=== PATIENT | female | born 1985 | race Hispanic/Latino ===

== ENCOUNTER 2016-06-21 21:25 | Emergency (ER) | payer SELFPAY ==
[2016-06-21 21:50] VITALS: BP 125/82
[2016-06-21 22:22] LABS: Basophils % (Auto) 0.8 % (0.0-1.8); Hemoglobin 12.5 gm/dl (10.1-14.3); Mean Corpuscular HGB Conc 33 % (30-34); Mean Corpuscular Hemoglobin 29 pg (28-32); Mean Corpuscular Volume 88 fl (79-97); Platelet Count 368 K/mm3 (140-440); Red Blood Count 4.34 M/mm3 (3.65-5.03); Red Cell Distribution Width 13.7 % (13.2-15.2); White Blood Count 8.6 K/mm3 (4.5-11.0)
[2016-06-21 22:37] LABS: Anion Gap 18 mmol/L; BUN/Creatinine Ratio 18.57; Blood Urea Nitrogen 13 mg/dL (7-17); Calcium 9.2 mg/dL (8.4-10.2); Carbon Dioxide 26 mmol/L (22-30); Chloride 99.9 mmol/L (98-107); Glucose 102 mg/dL (65-100); Potassium 3.8 mmol/L (3.6-5.0); Sodium 140 mmol/L (137-145)
[2016-06-22 00:22] LABS: Bacteria,Urine 3+ /HPF (Negative); Bilirubin,Urine NEG (Negative); Blood,Urine LG (Negative); Ketones,Urine NEG (Negative); Leukocyte Esterase,Urine LG (Negative); Mucus,Urine 3+ /HPF; Nitrite,Urine NEG (Negative); Urobilinogen,Urine < 2.0 mg/dL (<2.0)
[2016-06-22] MEDS ORDERED: MOTRIN PO ONE (00:57)
--- NOTE | 2016-06-22 00:58 | Emergency Department Report ---
ED Abdominal Pain HPI - General Chief Complaint: Abdominal Pain Stated Complaint: HEADACHE/BLOOD IN URINE/RT SIDE PAIN/NAUSEA Time Seen by Provider: 06/22/16 00:52 Source: patient Mode of arrival: Ambulatory Limitations: No Limitations - History of Present Illness MD Complaint: abdominal pain -: week(s) Location: R flank Radiation: RLQ Migration to: no migration Severity: moderate Consistency: constant Improves With: nothing Worsens With: movement - Related Data Previous Rx's Medication Instructions Recorded Last Taken Type Cefdinir 300 mg PO BID #20 capsule 06/22/16 Unknown Rx Allergies Allergy/AdvReac Type Severity Reaction Status Date / Time No Known Allergies Allergy Unverified 06/21/16 21:44 ED Review of Systems ROS: Stated complaint: HEADACHE/BLOOD IN URINE/RT SIDE PAIN/NAUSEA Other details as noted in HPI Comment: All other systems reviewed and negative ED Past Medical Hx - Past Medical History Previous Medical History?: No - Surgical History Past Surgical History?: Yes Hx Cholecystectomy: Yes Additional Surgical History: HERNIA REPAIR - Social History Smoking Status: Current Every Day Smoker Substance Use Type: None - Medications Home Medications: Home Medications Medication Instructions Recorded Confirmed Last Taken Type Cefdinir 300 mg PO BID #20 capsule 06/22/16 Unknown Rx ED Physical Exam - General Limitations: No Limitations General appearance: alert, in no apparent distress - Head Head exam: Present: atraumatic, normocephalic - Eye Eye exam: Present: normal appearance, PERRL, EOMI Pupils: Present: normal accommodation - ENT ENT exam: Present: normal exam, mucous membranes moist - Neck Neck exam: Present: normal inspection - Respiratory Respiratory exam: Present: normal lung sounds bilaterally. Absent: respiratory distress - Cardiovascular Cardiovascular Exam: Present: regular rate, normal rhythm. Absent: systolic murmur, diastolic murmur, rubs, gallop - GI/Abdominal GI/Abdominal exam: Present: soft, tenderness, normal bowel sounds. Absent: distended, guarding, rebound, rigid (R Flank), mass, hernia - Extremities Exam Extremities exam: Present: normal inspection - Back Exam Back exam: Present: normal inspection, CVA tenderness (R) (Right) - Neurological Exam Neurological exam: Present: alert, oriented X3 - Psychiatric Psychiatric exam: Present: normal affect, normal mood - Skin Skin exam: Present: warm, dry, intact, normal color. Absent: rash ED Course Vital Signs 06/21/16 21:44 Temperature 97.9 F Pulse Rate 108 H Respiratory 20 Rate Blood Pressure 125/82 O2 Sat by Pulse 97 Oximetry ED Medical Decision Making - Lab Data Result diagrams: 06/21/16 21:55 06/21/16 21:55 Critical care attestation.: If time is entered above; I have spent that time in minutes in the direct care of this critically ill patient, excluding procedure time. ED Disposition Clinical Impression: Abdominal pain, Pyelonephritis Disposition: DISCHARGED TO HOME OR SELFCARE Is pt being admited?: No Condition: Stable Instructions: Abdominal Pain (ED), Acute Pyelonephritis (ED) Prescriptions: Cefdinir 300 mg PO BID #20 capsule Referrals: PRIMARY CARE, [Primary Care Provider] - 3-5 Days
[2016-06-22] MEDS ORDERED: ROCEPHIN/NS 1 GM/50 ML 1 GM/50 ML BAG IV ONE (01:00)
[2016-06-22] MEDS ORDERED: NACL 0.9% 1000 ML 1,000 ML IV ONE (01:00)
== END 2016-06-22 01:50 | disposition home or self-care (01) ==
LOC: ED 21:25
DX: N12 Tubulo-interstitial nephritis, not specified as acute or chronic (principal); F17.200 Nicotine dependence, unspecified, uncomplicated
CPT/HCPCS: 36415; 80048; 81001; 81025; 85025; 96365; 99283; J0696; J7030

== ENCOUNTER 2017-04-03 02:15 | Emergency (ER) | payer SELFPAY ==
[2017-04-03 02:21] VITALS: BP 115/73
[2017-04-03] MEDS ORDERED: TYLENOL PO ONE (04:08)
[2017-04-03] MEDS ORDERED: TYLENOL ONE (04:10)
== END 2017-04-03 10:00 | disposition left against medical advice (07) ==
LOC: ED 02:15
DX: R09.89 Other specified symptoms and signs involving the circulatory and respiratory systems (principal); Z53.21 Procedure and treatment not carried out due to patient leaving prior to being seen by health care provider
CPT/HCPCS: 87116; 87400; 87430

== ENCOUNTER 2017-04-04 13:36 | Emergency (ER) | payer SELFPAY ==
[2017-04-04 13:42] VITALS: BP 120/66
[2017-04-04] MEDS ORDERED: MOTRIN PO ONE (15:02)
--- NOTE | 2017-04-04 15:06 | Emergency Department Report ---
- General Chief Complaint: Upper Respiratory Infection Stated Complaint: FLY SYMPTOMS Time Seen by Provider: 04/04/17 14:56 Source: patient Mode of arrival: Ambulatory Limitations: No Limitations - History of Present Illness MD Complaint: cough, sore throat, rhinorrhea, nasal congestion -: days(s) (2) Severity scale (0 -10): 10 Quality: sharp, aching Consistency: constant Improves With: nothing Worsens With: activity Context: sick contacts Associated Symptoms: fever, chills, rhinorrhea, nasal congestion, cough - Related Data Previous Rx's Medication Instructions Recorded Last Taken Type Cefdinir 300 mg PO BID #20 capsule 06/22/16 Unknown Rx Dexchlorpheniram/Phenylephrine 1 each PO Q6H #16 tab 04/04/17 Unknown Rx [Rymed Tablet] Doxycycline [Vibramycin] 100 mg PO Q12HR 10 Days #20 capsule 04/04/17 Unknown Rx Ibuprofen 600 mg PO Q8H PRN #15 tablet 04/04/17 Unknown Rx Ofloxacin 0.3% [Ocuflox] 10 drops OP BID #1 bottle 04/04/17 Unknown Rx Allergies Allergy/AdvReac Type Severity Reaction Status Date / Time No Known Allergies Allergy Unverified 06/21/16 21:44 ED Review of Systems ROS: Stated complaint: FLY SYMPTOMS Other details as noted in HPI Constitutional: fever, malaise ENT: ear pain, throat pain, congestion (nasal), other (rhinorrhea) Respiratory: cough Gastrointestinal: denies: abdominal pain, nausea, diarrhea Genitourinary: denies: urgency, dysuria, discharge Musculoskeletal: denies: back pain, joint swelling, arthralgia Skin: denies: rash, lesions ED Past Medical Hx - Past Medical History Previous Medical History?: No - Surgical History Hx Cholecystectomy: Yes Additional Surgical History: HERNIA REPAIR, T&A - Social History Smoking Status: Current Every Day Smoker Substance Use Type: None - Medications Home Medications: Home Medications Medication Instructions Recorded Confirmed Last Taken Type Cefdinir 300 mg PO BID #20 capsule 06/22/16 Unknown Rx Dexchlorpheniram/Phenylephrine 1 each PO Q6H #16 tab 04/04/17 Unknown Rx [Rymed Tablet] Doxycycline [Vibramycin] 100 mg PO Q12HR 10 Days #20 capsule 04/04/17 Unknown Rx Ibuprofen 600 mg PO Q8H PRN #15 tablet 04/04/17 Unknown Rx Ofloxacin 0.3% [Ocuflox] 10 drops OP BID #1 bottle 04/04/17 Unknown Rx ED Physical Exam - General Limitations: No Limitations General appearance: alert, in no apparent distress - Head Head exam: Present: atraumatic, normocephalic - Eye Eye exam: Present: normal appearance - ENT ENT exam: Present: mucous membranes moist - Expanded ENT Exam Expanded TM/Canal exam: Erythema: Right TM, Left TM, Canal Tenderness: Left TM Throat exam: Positive: other (uvula is erythematous and edematous) - Neck Neck exam: Present: tenderness - Respiratory Respiratory exam: Present: normal lung sounds bilaterally. Absent: respiratory distress - Cardiovascular Cardiovascular Exam: Present: tachycardia - GI/Abdominal GI/Abdominal exam: Present: soft, normal bowel sounds - Extremities Exam Extremities exam: Present: normal inspection - Back Exam Back exam: Present: normal inspection - Psychiatric Psychiatric exam: Present: normal affect, normal mood ED Course Vital Signs 04/04/17 13:40 Temperature 97.2 F L Pulse Rate 101 H Respiratory 18 Rate Blood Pressure 120/66 O2 Sat by Pulse 100 Oximetry ED Medical Decision Making - Medical Decision Making Patient's been evaluated by this provider fast track. It appears the patient has pharyngitis, left otitis externa and upper respiratory infection. Will discharge patient appropriate medication and follow with the primary care provider. Critical care attestation.: If time is entered above; I have spent that time in minutes in the direct care of this critically ill patient, excluding procedure time. ED Disposition Clinical Impression: Otitis externa of both ears Qualifiers: Otitis externa type: unspecified type Chronicity: acute Qualified Code(s): H60.503 - Unspecified acute noninfective otitis externa, bilateral Pharyngitis Qualifiers: Pharyngitis/tonsillitis etiology: unspecified etiology Qualified Code(s): J02.9 - Acute pharyngitis, unspecified Disposition: - TO HOME OR SELFCARE Is pt being admited?: No Does the pt Need Aspirin: No Condition: Stable Instructions: Otitis Externa (ED), Pharyngitis (ED) Additional Instructions: Take medication as prescribed follow to primary care provider in 3-5 days Prescriptions: Dexchlorpheniram/Phenylephrine [Rymed Tablet] 1 each PO Q6H #16 tab Doxycycline [Vibramycin] 100 mg PO Q12HR 10 Days #20 capsule Ibuprofen 600 mg PO Q8H PRN #15 tablet PRN Reason: Pain Ofloxacin 0.3% [Ocuflox] 10 drops OP BID #1 bottle Referrals: GLORIA VELEZ MD [Staff Physician] - 3-5 Days
== END 2017-04-04 15:31 | disposition home or self-care (01) ==
LOC: ED 13:36
DX: J02.9 Acute pharyngitis, unspecified (principal); H60.503 Unspecified acute noninfective otitis externa, bilateral; F17.200 Nicotine dependence, unspecified, uncomplicated; Z90.49 Acquired absence of other specified parts of digestive tract
CPT/HCPCS: 99282

== ENCOUNTER 2018-05-04 03:20 | Emergency (ER) | payer OTHER ==
[2018-05-04 03:26] VITALS: BP 134/81
[2018-05-04] MEDS ORDERED: TORADOL IM ONE (07:26)
[2018-05-04] MEDS ORDERED: BICILLIN L-A IM ONE (07:26)
--- NOTE | 2018-05-04 07:41 | Emergency Department Report ---
ED ENT HPI - General Chief complaint: Dental/Oral Stated complaint: ABCESS TOOTH SWOLLEN FACE Time Seen by Provider: 05/04/18 07:11 Source: patient Mode of arrival: Ambulatory Limitations: No Limitations - History of Present Illness Initial comments: Patient is a 32-year-old female that comes in with significant dental caries diffusely throughout her mouth. She is especially bothered by her left tooth #27, 28 and 29. She has significant gingival disease. The patient does not have a dentist. 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 There is no abscess. Patient has been taking [id number] aspirin for the pain. Patient is taking by mouth and controlling secretions. Patient is afebrile and ambulatory. Patient denies daily home medications -: Gradual, days(s) Severity: moderate Improves with: none Worsens with: eating Associated Symptoms: gum swelling, toothache. denies: fever, cough, pain with swallowing, sore throat, tinnitus, hearing loss, discharge from ear, rhinorrhea - Related Data Previous Rx's Medication Instructions Recorded Last Taken Type Naproxen [Naprosyn] 500 mg PO BID PRN #20 tablet 05/04/18 Unknown Rx RX: Amoxicillin 500 mg PO BID #20 capsule 05/04/18 Unknown Rx Allergies Allergy/AdvReac Type Severity Reaction Status Date / Time No Known Allergies Allergy Unverified 06/21/16 21:44 ED Dental HPI - General Chief complaint: Dental/Oral Stated complaint: ABCESS TOOTH SWOLLEN FACE Time Seen by Provider: 05/04/18 07:11 Source: patient Mode of arrival: Ambulatory Limitations: No Limitations - Related Data Previous Rx's Medication Instructions Recorded Last Taken Type Naproxen [Naprosyn] 500 mg PO BID PRN #20 tablet 05/04/18 Unknown Rx RX: Amoxicillin 500 mg PO BID #20 capsule 05/04/18 Unknown Rx Allergies Allergy/AdvReac Type Severity Reaction Status Date / Time No Known Allergies Allergy Unverified 06/21/16 21:44 ED Review of Systems ROS: Stated complaint: ABCESS TOOTH SWOLLEN FACE Other details as noted in HPI Comment: All other systems reviewed and negative Constitutional: denies: see HPI Eyes: denies: eye pain ENT: as per HPI. denies: throat pain Respiratory: denies: cough Cardiovascular: denies: dyspnea on exertion Endocrine: denies: excessive sweating Genitourinary: denies: urgency Neurological: denies: headache Psychiatric: denies: as per HPI Hematological/Lymphatic: denies: as per HPI ED Past Medical Hx - Past Medical History Previous Medical History?: No - Surgical History Past Surgical History?: Yes Hx Cholecystectomy: Yes Additional Surgical History: HERNIA REPAIR, Tonsillectomy, Adenoidectomy, Right hand Carpal Tunnel Repair - Social History Smoking Status: Current Every Day Smoker - Medications Home Medications: Home Medications Medication Instructions Recorded Confirmed Last Taken Type Naproxen [Naprosyn] 500 mg PO BID PRN #20 tablet 05/04/18 Unknown Rx RX: Amoxicillin 500 mg PO BID #20 capsule 05/04/18 Unknown Rx ED Physical Exam - General Limitations: No Limitations General appearance: alert - Head Head exam: Present: atraumatic - Eye Eye exam: Present: normal appearance - ENT ENT exam: Present: mucous membranes moist - Expanded ENT Exam Expanded Mouth exam: Absent: drooling, trismus, muffled voice, tongue normal, tongue elevation, laceration Teeth exam: Present: dental caries 1 - Other (diffuse disease; denies drugs) ED Course Vital Signs 05/04/18 03:24 Temperature 97.7 F Pulse Rate 99 H Respiratory 18 Rate Blood Pressure 134/81 O2 Sat by Pulse 99 Oximetry ED Medical Decision Making - Medical Decision Making Patient has no fluid wave, abscess or difficulty swallowing. Patient was medicated with IM injections. Patient was educated on the importance of dental care and the implications he can have with systemic illness. I sent her home with amoxicillin. Patient was also given numerous referrals to dental clinics in the area. Critical care attestation.: If time is entered above; I have spent that time in minutes in the direct care of this critically ill patient, excluding procedure time. ED Disposition Clinical Impression: Pain, dental, Dental caries, Gingival and periodontal disease Disposition: - TO HOME OR SELFCARE Is pt being admited?: No Does the pt Need Aspirin: No Condition: Stable Instructions: Dental Caries (ED) Additional Instructions: MEDS ORDERED TODAY HYDRATE WELL WITH WATER ACTIVITY TOLERATED DIET TOLERATED FOLLOW UP WITH DMD HUDSON OVER THE COUNTER TYLENOL AND MOTRIN FOR PAIN Prescriptions: RX: Amoxicillin 500 mg PO BID #20 capsule Naproxen [Naprosyn] 500 mg PO BID PRN #20 tablet PRN Reason: Pain Referrals: INES TALAVERA MD [Primary Care Provider] - 3-5 Days [facility] [Outside] - 3-5 Days [facility] [Outside] - 3-5 Days Time of Disposition: 07:39
== END 2018-05-04 07:49 | disposition home or self-care (01) ==
LOC: ED 03:20
DX: K02.9 Dental caries, unspecified (principal); K05.6 Periodontal disease, unspecified; F17.200 Nicotine dependence, unspecified, uncomplicated; Z90.49 Acquired absence of other specified parts of digestive tract; Z90.89 Acquired absence of other organs; Z79.82 Long term (current) use of aspirin
CPT/HCPCS: 96372; 99282; J0561; J1885

== ENCOUNTER 2020-03-12 18:46 | Emergency (ER) | payer OTHER ==
--- NOTE | 2020-03-12 19:56 | Event Note ---
ED Screening Note ED Screening Note: Patient presents for lower back pain, suprapubic abdominal discomfort, urinary symptoms that began a couple days ago [facility] 02/27/2020 This initial assessment/diagnostic orders/clinical plan/treatment(s) is/are subject to change based on patients health status, clinical progression and re- assessment by fellow clinical providers in the ED. Further treatment and workup at subsequent clinical providers discretion. Patient/guardian urged not to elope from the ED as their condition may be serious if not clinically assessed and managed. Initial orders include: UA, urine preg
[2020-03-12 20:49] LABS: Bilirubin,Urine NEG (Negative); Blood,Urine SM (Negative); Color,Urine Yellow (Yellow); Mucus,Urine 3+ /HPF; Urobilinogen,Urine < 2.0 mg/dL (<2.0)
[2020-03-12 20:50] LABS: WBC,Urine > 182.0 /HPF (0.0-6.0)
[2020-03-12 20:54] LABS: HCG Qualitative,Urine Negative (Negative)
[2020-03-12] MEDS ORDERED: cefTRIAXone/NS 1 GM/50 ML 1 GM/50 ML BAG IV ONE (21:57)
[2020-03-12] MEDS ORDERED: KETOROLAC 30 MG/1 ML INJ IV ONE (21:57)
[2020-03-12] MEDS ORDERED: SODIUM CHLORIDE 0.9% 1000 ML 1,000 ML IV ONE (21:58)
--- NOTE | 2020-03-12 22:02 | Emergency Department Report ---
ED General Adult HPI - General Chief complaint: Abdominal Pain Stated complaint: BACK/ABD PAIN Time Seen by Provider: 03/12/20 21:53 Source: patient Mode of arrival: Ambulatory Limitations: No Limitations - History of Present Illness Initial comments: 34-year-old female presents with complaints of decreased urination, urinary frequency, and lower abdominal pain x3 days, now radiating to her left mid back area x1 day. She denies any prior medical history, vaginal discharge, fever/chills/sweats, hematuria, vaginal bleeding/dyspareunia, stool changes, or nausea/vomiting. She rates her current pain as a 7/10 in severity and states it has been worsening since its onset. - Related Data Previous Rx's Medication Instructions Recorded Last Taken Type Amoxicillin 500 mg PO BID #20 capsule 05/04/18 Unknown Rx Naproxen [Naprosyn] 500 mg PO BID PRN #20 tablet 05/04/18 Unknown Rx Acetaminophen/Codeine [Tylenol 1 tab PO Q8H PRN #6 tab 03/12/20 Unknown Rx /Codeine # 3 tab] Ciprofloxacin HCl [Ciprofloxacin 500 mg PO Q12HR 7 Days #14 tab 03/12/20 Unknown Rx TAB] Allergies Allergy/AdvReac Type Severity Reaction Status Date / Time No Known Allergies Allergy Unverified 06/21/16 21:44 ED Review of Systems ROS: Stated complaint: BACK/ABD PAIN Other details as noted in HPI Constitutional: denies: chills, diaphoresis, fever, malaise, weakness Respiratory: denies: cough, shortness of breath Cardiovascular: denies: chest pain Gastrointestinal: abdominal pain. denies: nausea, vomiting, diarrhea, cons tipation Genitourinary: urgency, frequency. denies: dysuria, hematuria, discharge, abnormal menses Musculoskeletal: back pain Skin: denies: lesions, change in color Neurological: denies: headache ED Past Medical Hx - Past Medical History Previous Medical History?: Yes Hx Diabetes: Yes (while ) - Surgical History Past Surgical History?: Yes Hx Cholecystectomy: Yes Additional Surgical History: HERNIA REPAIR, Tonsillectomy, Adenoidectomy, Right hand Carpal Tunnel Repair - Social History Smoking Status: Never Smoker Substance Use Type: None - Medications Home Medications: Home Medications Medication Instructions Recorded Confirmed Last Taken Type Amoxicillin 500 mg PO BID #20 capsule 05/04/18 Unknown Rx Naproxen [Naprosyn] 500 mg PO BID PRN #20 tablet 05/04/18 Unknown Rx Acetaminophen/Codeine [Tylenol 1 tab PO Q8H PRN #6 tab 03/12/20 Unknown Rx /Codeine # 3 tab] Ciprofloxacin HCl [Ciprofloxacin 500 mg PO Q12HR 7 Days #14 tab 03/12/20 Unknown Rx TAB] ED Physical Exam - General Limitations: No Limitations General appearance: alert, in no apparent distress, obese - Head Head exam: Present: atraumatic, normocephalic - Eye Eye exam: Absent: scleral icterus - Respiratory Respiratory exam: Present: normal lung sounds bilaterally. Absent: respiratory distress - Cardiovascular Cardiovascular Exam: Present: regular rate, normal rhythm - GI/Abdominal GI/Abdominal exam: Present: soft, tenderness (Suprapubic, left CVA), normal bowel sounds. Absent: distended, guarding, rebound, rigid - Extremities Exam Extremities exam: Present: full ROM - Back Exam Back exam: Present: normal inspection - Neurological Exam Neurological exam: Present: alert, oriented X3 - Psychiatric Psychiatric exam: Present: normal affect, normal mood - Skin Skin exam: Present: warm, dry, intact, normal color. Absent: rash, cyanosis, diaphoretic ED Course Vital Signs 03/12/20 19:49 Temperature 97.9 F Pulse Rate 93 H Respiratory 16 Rate Blood Pressure 127/77 O2 Sat by Pulse 99 Oximetry ED Medical Decision Making - Lab Data Result diagrams: 03/12/20 22:02 03/12/20 22:02 - Medical Decision Making 34-year-old female presents with complaints of decreased urination, urinary frequency, and lower abdominal pain x3 days, now radiating to her left mid back area x1 day. She denies any prior medical history, vaginal discharge, fever/chills/sweats, hematuria, vaginal bleeding/dyspareunia, stool changes, or nausea/vomiting. She rates her current pain as a 7/10 in severity and states it has been worsening since its onset. Lower abdominal tenderness and left CVA tenderness on exam. UA shows >182 WBCs. History, exam, and lab findings are consistent with pyelonephritis. Patient given Rocephin and Toradol here in ED. No significant abnormalities noted on CBC or BMP. Vitals are normal. Patient is well-appearing and stable for discharge home. Prescription for Cipro given. Recommend follow-up with primary care in 3 days. Strict return precautions were discussed in great detail with patient who verbalizes understanding. Critical care attestation.: If time is entered above; I have spent that time in minutes in the direct care of this critically ill patient, excluding procedure time. ED Disposition Clinical Impression: Pyelonephritis Disposition: DC-01 TO HOME OR SELFCARE Is pt being admited?: No Condition: Stable Instructions: Pyelonephritis, Adult, Abdominal Pain (ED) Prescriptions: Ciprofloxacin HCl [Ciprofloxacin TAB] 500 mg PO Q12HR 7 Days #14 tab Acetaminophen/Codeine [Tylenol /Codeine # 3 tab] 1 tab PO Q8H PRN #6 tab PRN Reason: Pain , Severe (7-10) Referrals: PRIMARY CARE, [Primary Care Provider] - 3-5 Days Forms: Work/School Release Form(ED)
[2020-03-12 22:18] LABS: Basophils # (Auto) 0.1 K/mm3 (0.0-0.1); Basophils % (Auto) 0.9 % (0.0-1.8); Eosinophils # (Auto) 0.1 K/mm3 (0.0-0.4); Eosinophils % (Auto) 1.1 % (0.0-4.3); Hematocrit 38.6 % (30.3-42.9); Lymphocytes # (Auto) 2.6 K/mm3 (1.2-5.4); Lymphocytes % (Auto) 28.1 % (13.4-35.0); Mean Corpuscular HGB Conc 34 % (30-34); Mean Corpuscular Volume 88 fl (79-97); Monocytes # (Auto) 0.6 K/mm3 (0.0-0.8); Monocytes % (Auto) 6.9 % (0.0-7.3); Platelet Count 364 K/mm3 (140-440); Red Blood Count 4.39 M/mm3 (3.65-5.03); Red Cell Distribution Width 14.7 % (13.2-15.2)
[2020-03-12 22:32] LABS: BUN/Creatinine Ratio 20; Blood Urea Nitrogen 14 mg/dL (7-17); Calcium 9.1 mg/dL (8.4-10.2); Hemolysis Index 6
[2020-03-13 00:14] VITALS: BP 119/78
== END 2020-03-12 23:45 | disposition home or self-care (01) ==
LOC: ED 18:46
DX: N12 Tubulo-interstitial nephritis, not specified as acute or chronic (principal); E11.9 Type 2 diabetes mellitus without complications; Z79.899 Other long term (current) drug therapy; Z90.49 Acquired absence of other specified parts of digestive tract; Z98.890 Other specified postprocedural states
CPT/HCPCS: 36415; 80048; 81001; 81025; 85025; 96365; 96375; 99283; J0696; J1885; J7030